=== PATIENT | male | born 2005 ===

== ENCOUNTER 2025-04-07 01:52 | Outpatient (CLI) | payer SELFPAY ==
--- NOTE | 2025-04-07 14:54 | PDOC.EEG_ITS ---
Neurology EEG EEG: [facility] Department of Neurology EEG REPORT Date of Recordin04/07/25 Interpreting Physician: Dr. Kathleen Chou PCP/Referring Provider: Dr. Jose Ramon Miranda Reason for study: Salvador Sandoval is 20 year-old with recent spell of loss of consciousness. Current Medications: [place] 1200mg daily Abilify 5mg daily METHODS: A 21 channel digitized electroencephalogram was performed in the [facility] Clinical Neurophysiology Laboratory. The 10/20 international system of electrode placement was used and bipolar and referential electrode montages were recorded. In addition to EEG the patient was monitored for EKG and lateral/vertical eye movements. Activation procedures of photic stimulation and hyperventilation were performed if applicable. Video was used during activation procedures and during events where applicable. The duration of the recording was 30 minutes. DESCRIPTION OF EEG: The patient was noted to be awake, drowsy, and asleep during the recording. During maximal wakefulness a 7-Hz posterior background rhythm was present which was well-modulated, symmetrical, reactive to eye opening, and of moderate voltage. With eye opening the background activity changed to a low voltage mixture of beta and occasional theta range frequencies - no alpha activity seen. There was a normal anterior-posterior voltage gradient. During drowsiness, there was attenuation of the posterior dominant background rhythm and vertex waves. Stage II sleep was present with symmetrical sleep spindles, K-complexes, and vertex waves. During wakefulness, there was continuous, generalized, non-rhythmic theta activity. There were occasional more focal bifrontal, high-amplitude single delta wave bursts. Activating Procedures: Photic stimulation was performed which produced an asymmetrical posterior driving response at various flash frequencies in the right hemisphere only. Hyperventilation was performed with moderate effort and produced no physiological slowing of the background. EKG: EKG revealed normal sinus rhythm. INTERPRETATION: This EEG is abnormal due to: #1. Slowing of the posterior dominant rhythm with diffuse generalized theta activity. #2. Occasional focal bifrontal delta waves. #3. Asymmetric driving response occurring in the right hemisphere only. PRIOR EEG: none CLINICAL CORRELATION: The background and generalized slowing is suggestive of a mild diffuse cerebral encephalopathy of broad differential including toxic-metabolic etiology, possibly related to known lithium Rx. There was multiple areas of more focalized slowing which may be part of the toxic-metabolic process, however, would consider brain MR imaging if not already performed. No epileptiform activity was present. If seizure remains a strong clinical suspicion, could consider an overnight/ambulatory EEG for further evaluation. Epilepsy remains a clinical diagnosis and a normal EEG does not rule out epilepsy. Clinical correlation is advised. Kathleen Chou MD Date of service: 04/07/25
== END 2025-04-07 01:53 | disposition home or self-care (01) ==
LOC: RT 01:52
PROVIDERS: Visit Provider Family Medicine
DX: R55 Syncope and collapse (principal)
CPT/HCPCS: 95819